=== PATIENT | male | born 1990 ===

== ENCOUNTER 2020-11-03 18:39 | Emergency (ER) | payer SELFPAY ==
[2020-11-03 18:56] VITALS: TEMP 97.7
[2020-11-03] MEDS ORDERED: NAPROSYN500 MG PO (19:23)
[2020-11-03] MEDS ORDERED: FLEXERIL 1010 MG/TAB PO (19:23)
[2020-11-03 19:38] VITALS: BP 140/89; PULSE 80
== END 2020-11-03 19:38 | disposition home or self-care (01) ==
LOC: COL.ER 18:39
DX: M54.5 Low back pain (principal); M54.2 Cervicalgia
CPT/HCPCS: J1885